=== PATIENT | female | born 1985 | race Caucasian/White ===

== ENCOUNTER 2016-12-16 23:08 | Emergency (ER) | payer OTHER ==
[2016-12-16] MEDS ORDERED: SODIUM CHLORIDE 1,000 ML IV ONE ×2 (23:11→23:48)
[2016-12-16] MEDS ORDERED: ONDANSETRON 4 MG/2 ML VIAL IVPB ONE (23:11)
--- NOTE | 2016-12-16 23:14 | PDOC ---
History of Present Illness - General Chief Complaint: Vomiting/Diarrhea Stated Complaint: FOOD POISONING Time Seen by Provider: 12/16/16 23:10 History Source: Patient Exam Limitations: No Limitations - History of Present Illness Initial Comments: 12/16/16 23:21 This is a 31-year-old female who returned this evening from [facility] where she was vacationing. Patient developed nausea vomiting and diarrhea well in the [facility] yesterday. Patient has had multiple episodes of nausea vomiting and diarrhea since yesterday. Patient came straight from the plane to the emergency room. Patient last vomited here in the emergency room and said she had the last episode of diarrhea shortly before arrival in the emergency room. Patient had some chills yesterday and earlier this morning. Patient last took any Motrin approximately 6 hours ago. Patient is otherwise healthy and denies any other medical problems. PAST MEDICAL HISTORY: no significant history PAST SURGICAL HISTORY: no significant history FAMILY HISTORY: no pertinant history SOCIAL HISTORY: Pt lives with family and is employed. MEDICATIONS: reviewed ALLERGIES: As per nursing notes Review of Systems General: No fevers or chills, no weakness, no weight loss HEENT: No change in vision. No sore throat,. No ear pain, mucous membranes are dry CardioVascular: No chest pain or shortness of breath Respiratory:No cough, or wheezing. Gastrointestinal: +nausea, vomiting, and diarrhea+ Genitourinary: No dysuria, hematuria, or frequency Musculoskeletal: No joint or muscle pain or swelling Neurologic: No headache, vertigo, dizziness or loss of consciousness Psychiatric: nor depression Skin: No rashes or easy bruising Endocrine: no increased thirst or abnormal weight change Allergic: no skin or latex allergy All other systems reviewed and normal Exam: General: Well-nourished well-developed individual, no acute distress HEENT: Throat: Normal, tonsils normal, no erythema or exudate Neck: Supple, no meningeal signs, no lymphadenopathy Eyes::Pupils equal reactive and round, extraocular motion intact Chest: Nontender to palpation Cardiac: S1-S2 normal, regular rate and rhythm, no murmurs rubs or gallops Respiratory: Lungs clear to auscultation bilateral Abdomen: Soft, nondistended, increased bowel sounds, nontender to palpation diffusely Extremities: Warm, dry, no cyanosis, clubbing, or edema Skin: No rashes Neuro: Alert and oriented x3, nonfocal exam, grossly intact, normal gait Psych: Normal mood and affect 12/17/16 00:09 Patient is had no further vomiting in the emergency room. Is well hydrated after 2 L of fluid and able to urinate. Patient is able to tolerate by mouth's. Assessment and plan: Patient is a 31-year-old female with nausea vomiting and diarrhea after traveling to the [facility]. Patient is hydrated with 2 L of fluid and tolerating by mouth's. Patient feels better and discharged home with prescriptions for Zofran and told she can take Imodium if needed for the diarrhea Past History - Past Medical History Allergies/Adverse Reactions: Allergies Allergy/AdvReac Type Severity Reaction Status Date / Time No Known Allergies Allergy Verified 12/16/16 23:26 Home Medications: Ambulatory Orders Clonazepam [KlonoPIN] 0.5 mg PO PRN 12/16/16 Ondansetron [Zofran Odt -] 4 mg SL TID PRN #12 od.tablet 12/17/16 *DC/Admit/Observation/Transfer Diagnosis at time of Disposition: Nausea vomiting and diarrhea - Discharge Dispostion Disposition: HOME Condition at time of disposition: Stable Admit: No - Prescriptions Prescriptions: Ondansetron [Zofran Odt -] 4 mg SL TID PRN #12 od.tablet PRN Reason: Nausea - Patient Instructions Printed Discharge Instructions: Nausea and Vomiting-Adult Additional Instructions: For the nausea and vomiting U can take Zofran 1 tablet as often as every 6-8 hours. For diarrhea purchase [id number] Imodium and take as directed on the box. Clear liquids only for the next 6 hours.. After that if you have had no further vomiting you may have bananas, rice, applesauce, or toast. If no further vomiting for another 8 hours you may have regular food. If you vomit again then nothing to eat or drink for 2 hours. then start back with the clear liquids. Return to the emergency department immediately with ANY new, persistent or worsening symptoms. You MUST call and follow up with your doctor tomorrow if not better. Please make sure your doctor reviews the results of your emergency evaluation. . Please make sure your doctor reviews the results of your emergency evaluation. Thank you for coming to the Emergency Department today for your care. It was a pleasure to see you today. Please note that your evaluation is INCOMPLETE until you follow-up with your doctor.
[2016-12-16 23:38] VITALS: BP 117/71; PULSE 100; TEMP 98.5; BMI 32.4
[2016-12-16] MEDS ORDERED: ONDANSETRON 4 MG/2 ML VIAL ONE (23:45)
== END 2016-12-17 00:33 | disposition home or self-care (01) ==
LOC: FER 23:08
PROC: 3E033GC Introduction of Other Therapeutic Substance into Peripheral Vein, Percutaneous Approach (ICD-10-PCS; principal; 2016-12-16)
PROC: 3E0337Z Introduction of Electrolytic and Water Balance Substance into Peripheral Vein, Percutaneous Approach (ICD-10-PCS; 2016-12-16)
DX: R11.2 Nausea with vomiting, unspecified (principal); R19.7 Diarrhea, unspecified
CPT/HCPCS: 99281-25